=== PATIENT | female | born 1970 | race Caucasian/White ===

== ENCOUNTER 2017-05-10 05:00 | Observation (INO) | payer OTHER ==
[~2017-05-10] VITALS: Ht 160 cm; Wt 105.8 kg
[2017-05-10 05:06] VITALS: Ht 160 cm; Wt 105.8 kg
[2017-05-10 06:13] LABS: BASOPHIL % 0.4 % (0-2); PLATELET COUNT 302 x10^3mcL (130-400); RED CELL DISTRIBUTION WIDTH 13.5 % (11.5-14.5)
[2017-05-10 06:29] LABS: ALKALINE PHOSPHATASE 77 U/L (46-116); ALT/SGPT 34 U/L (14-59); AST/SGOT 39 U/L (15-37); BILIRUBIN TOTAL 0.3 mg/dL (0.20-1.00); CALCIUM 8.9 mg/dL (8.5-10.1); CHLORIDE SERUM 105 mmol/L (98-107); CREATININE SERUM 0.9 mg/dL (0.6-1.0); GFR1 > 60 mL/min; GLUCOSE SERUM 152 mg/dL (74-106); POTASSIUM SERUM 3.8 mmol/L (3.5-5.1); SODIUM SERUM 141 mmol/L (136-145)
[2017-05-10 07:01] LABS: ALBUMIN 3.5 g/dL (3.4-5.0); CARBON DIOXIDE 27.4 mmol/L (21-32)
[2017-05-10] MEDS ORDERED: ASPIR 8181 MG PO (07:22)
[2017-05-10] MEDS ORDERED: GOOD SENSE OMEP20 MG PO (07:44)
[2017-05-10 09:58] VITALS: BP 103/63
[2017-05-10 10:23] VITALS: BP 103/63
[2017-05-10 14:15] VITALS: BP 98/49
[2017-05-10 17:16] VITALS: BP 125/74
[2017-05-10] MEDS ORDERED: PEPCID20 MG PO ×2 (19:26→19:27)
[2017-05-10 19:29] VITALS: BP 125/74
== END 2017-05-10 20:52 | disposition home or self-care (01) | DRG 198 ==
LOC: ED 05:00 → DU 07:29
PROVIDERS: Emergency Medicine
DX: R07.89 Other chest pain (principal); I25.2 Old myocardial infarction; I69.354 Hemiplegia and hemiparesis following cerebral infarction affecting left non-dominant side; I10 Essential (primary) hypertension; K21.9 Gastro-esophageal reflux disease without esophagitis; F41.8 Other specified anxiety disorders; I25.10 Atherosclerotic heart disease of native coronary artery without angina pectoris; Z79.82 Long term (current) use of aspirin
CPT/HCPCS: 83880; 85378; 90658; A9500; G0378; J2405; J2785; J3490; Q0092

== ENCOUNTER 2018-06-18 15:53 | Emergency (ER) | payer OTHER ==
[~2018-06-18 15:53] MED LIST: ASPIR 8181 MG PO; GOOD SENSE OMEP20 MG PO; PEPCID20 MG PO
[2018-06-18 16:43] VITALS: BP 125/76
== END 2018-06-18 18:16 | disposition left against medical advice (07) ==
LOC: ED 15:53
DX: Z53.21 Procedure and treatment not carried out due to patient leaving prior to being seen by health care provider (principal)

== ENCOUNTER 2018-09-27 17:06 | Emergency (ER) | payer OTHER ==
[~2018-09-27] VITALS: Ht 170.2 cm; Wt 105.2 kg
[2018-09-27 17:19] VITALS: Ht 170.2 cm; Wt 105.2 kg
[2018-09-27 18:36] LABS: CHLORIDE SERUM 106 mmol/L (98-107); CREATININE SERUM 0.7 mg/dL (0.6-1.0); GFR1 > 60 mL/min; GLUCOSE SERUM 102 mg/dL (74-106); POTASSIUM SERUM 3.6 mmol/L (3.5-5.1); SODIUM SERUM 142 mmol/L (136-145)
[2018-09-27 18:42] LABS: BASOPHIL % 0.5 % (0-2); PLATELET COUNT 257 x10^3mcL (130-400); RED CELL DISTRIBUTION WIDTH 13.4 % (11.5-14.5)
[2018-09-27 18:46] LABS: ALBUMIN 3.2 g/dL (3.4-5.0); ALKALINE PHOSPHATASE 70 U/L (46-116); ALT/SGPT 53 U/L (14-59); AST/SGOT 39 U/L (15-37); BILIRUBIN TOTAL 0.3 mg/dL (0.20-1.00); LIPASE 210 IU/L (73-393); TOTAL PROTEIN, SERUM 7.1 g/dL (6.4-8.2)
[2018-09-27 18:48] LABS: UA SPECIFIC GRAVITY >=1.030 (1.005-1.035); microscopic required? YES; urine erythrocyte 1+ (NEGATIVE)
[2018-09-27 19:39] VITALS: BP 114/75
== END 2018-09-27 19:39 | disposition home or self-care (01) ==
LOC: ED 17:06
PROVIDERS: Emergency Medicine
DX: R10.84 Generalized abdominal pain (principal); R19.7 Diarrhea, unspecified; R11.10 Vomiting, unspecified; D64.9 Anemia, unspecified; Z86.73 Personal history of transient ischemic attack (TIA), and cerebral infarction without residual deficits
CPT/HCPCS: J1885; J2405; J7030

== ENCOUNTER 2018-09-28 19:40 | Emergency (ER) | payer OTHER ==
[~2018-09-28] VITALS: Ht 170.2 cm; Wt 105.7 kg
[2018-09-28 20:12] VITALS: Ht 170.2 cm; Wt 105.7 kg
[2018-09-28 21:12] LABS: BASOPHIL % 0.3 % (0-2); PLATELET COUNT 272 x10^3mcL (130-400); RED CELL DISTRIBUTION WIDTH 13.4 % (11.5-14.5)
[2018-09-28 21:22] LABS: CALCIUM 8.7 mg/dL (8.5-10.1); CARBON DIOXIDE 30.2 mmol/L (21-32); CHLORIDE SERUM 106 mmol/L (98-107); CREATININE SERUM 0.8 mg/dL (0.6-1.0); GFR1 > 60 mL/min; GLUCOSE SERUM 100 mg/dL (74-106); POTASSIUM SERUM 3.6 mmol/L (3.5-5.1); SODIUM SERUM 141 mmol/L (136-145)
[2018-09-28 21:26] LABS: ALKALINE PHOSPHATASE 67 U/L (46-116); ALT/SGPT 45 U/L (14-59); AST/SGOT 39 U/L (15-37); BILIRUBIN TOTAL 0.3 mg/dL (0.20-1.00); LIPASE 195 IU/L (73-393); TOTAL PROTEIN, SERUM 6.9 g/dL (6.4-8.2)
[2018-09-28 21:28] LABS: ALBUMIN 3.3 g/dL (3.4-5.0)
[2018-09-28 22:28] LABS: UA SPECIFIC GRAVITY <=1.005 (1.005-1.035); microscopic required? YES; urine erythrocyte TRACE (NEGATIVE)
[2018-09-29 00:17] VITALS: BP 116/94
== END 2018-09-29 00:17 | disposition home or self-care (01) ==
LOC: ED 19:40
PROVIDERS: Emergency Medicine
DX: R10.13 Epigastric pain (principal); R19.7 Diarrhea, unspecified; Z86.2 Personal history of diseases of the blood and blood-forming organs and certain disorders involving the immune mechanism; Z86.73 Personal history of transient ischemic attack (TIA), and cerebral infarction without residual deficits
CPT/HCPCS: 85378; J2405

== ENCOUNTER 2019-01-20 05:33 | Inpatient (IN) | payer MEDICAID ==
[~2019-01-20] VITALS: Ht 167.6 cm; Wt 95.0 kg
--- NOTE | 2019-01-20 05:51 | NUR ---
PT CAME IN DUE TO C/O OF CHEST PAIN AND RADIATING TO RT ARM FOR 2 DAYS, PT IS ALERT AND ORIENTED X 4, BREATHING EVEN AND UNLABORED ON ROOM AIR WITH SPO2:96%, NO RESP DISTRESS OR SOB NOTED, PLACED PT ON GLOBAL COORDINATOR WITH NSR, EKG DONE AT BEDSIDE, DR LENZ AT BEDSIDE AND EVMYRTLE PT.
--- NOTE | 2019-01-20 06:06 | NUR ---
DR LUNA AT BEDSIDE AND MARIA ELENA PT.
[2019-01-20 06:26] LABS: CALCIUM 9.5 mg/dL (8.5-10.1); CARBON DIOXIDE 23.6 mmol/L (21-32); CHLORIDE SERUM 105 mmol/L (98-107); CREATININE SERUM 0.9 mg/dL (0.6-1.0); GFR1 > 60 mL/min; GLUCOSE SERUM 111 mg/dL (74-106); POTASSIUM SERUM 3.7 mmol/L (3.5-5.1); SODIUM SERUM 140 mmol/L (136-145)
[2019-01-20 06:30] LABS: ALBUMIN 3.8 g/dL (3.4-5.0); ALKALINE PHOSPHATASE 82 U/L (46-116); ALT/SGPT 38 U/L (14-59); AST/SGOT 38 U/L (15-37); BILIRUBIN TOTAL 0.8 mg/dL (0.20-1.00); LIPASE 141 IU/L (73-393); TOTAL PROTEIN, SERUM 7.8 g/dL (6.4-8.2)
[2019-01-20 06:48] LABS: BASOPHIL % 0.3 % (0-2); PLATELET COUNT 287 x10^3mcL (130-400)
--- NOTE | 2019-01-20 06:52 | NUR ---
PT RESTING IN BED WITH EYES CLOSED AND APPEARS COMFORTABLE, NO DISTRESS NOTED.
--- NOTE | 2019-01-20 07:00 | NUR ---
REPORT GIVEN TO ESTEPHANIE, ALL QUESTIONS ANSWERED AND CONCERNS ADDRESSED.
--- NOTE | 2019-01-20 07:02 | NUR ---
RECEIVED REPORT FROM EMILI RODRIGUEZ AND ASSUMED CARE OF PATIENT.
--- NOTE | 2019-01-20 07:28 | NUR ---
PT. SLEEPING, EASILY ARROUSABLE. LAYING ON GURNEY IN POSITION OF COMFORT. BREATHING E/U. NAD. CALL LIGHT IN REACH. WILL CONTINUE TO MONITOR.
[2019-01-20] MEDS ORDERED: BENTYL20 MG/2 ML (07:31)
[2019-01-20] MEDS ORDERED: REG5 (07:31)
[2019-01-20] MEDS ORDERED: ZOF4 (07:31)
[2019-01-20] MEDS ORDERED: TRAMADOL HCL50 MG (07:32)
--- NOTE | 2019-01-20 07:40 | NUR ---
DR. VASQUES AT BEDSIDE TO DISCUSS RESULTS AND PLAN OF CARE WITH PATIENT.
--- NOTE | 2019-01-20 08:20 | NUR ---
NITRO ORDERED AT 6AM AND WAS NOT GIVEN, NOTIFIED DR. VASQUES AND ADVISED TO HOLD NITRO AT THIS TIME.
--- NOTE | 2019-01-20 08:21 | NUR ---
REPORT CALLED TO LEANNE RODRIGUEZ IN TELE DEPARTMENT FOR FURTHER CARE OF PATIENT. ALL QUESTIONS AND CONCERNS ADDRESSED.
--- NOTE | 2019-01-20 08:30 | NUR ---
RECEIVED PATIENT ALERT AND ORIENTED TIMES FOUR. PATIENT HAS CHEST PAIN TO THE RIGHT SIDE OF THE CHEST AND HAS IT RADIATIUNG TO [facility] RIGHT ARM FROM THE SHOULDER TO THE WRIST. PATIENT HAS VITALS AT [facility] AT 97.1, 94%, 110/82, 75, 20. PATIENT HAS BEEN WITH PAIN TO HTE CHEST AND SOME DIZZINESS AND NAUSEA AND NUMBNESS TO THE RIGHT LEG THAT ADITYA HER INTO THE ER. SHE HAS HAD A COLONOSCOPY ABOUT A WEEK AGO AND POLYPS REMOVED AT THAT TIME. 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 PATIENT HAS BEEN AMBULATORY AND DENIES ANY NEED FOR A CANE OR WALKER. THE PATIENT WAS ASSISTED TO THE RESTROOM AND NOTED SHE HAS A LIMP. SHE STATES SOME WEAKNESS TO THE LEFT LEG POST THE STROKE. PATIENT HAS NOTED EKG CHANGES ON [facility] MONITOR AND WAS ADMITTED DUE TO THIS. PATIENY HAS NEGATIVE TROPONIN AND THE CHEST XRAY ALSO NEGATIVE.
--- NOTE | 2019-01-20 08:42 | NUR ---
PT. TRANSPORTED TO [facility] FLOOR RM 221B. TRANSPORTED VIA RNEY, PT. AAOX4, TALKING AND RESPONDING APPROPRIATELY, BREATHING E/U. NAD. STABLE AT TIME OF TRANSFER.
[2019-01-20 09:32] VITALS: BP 110/82
--- NOTE | 2019-01-20 11:00 | NUR ---
CHECKED THE PATIENT AN D SHE IS SLEEPING QUIETLY AT THIS TIME. NO INDICATION OF DISTRESS NOTED.
[2019-01-20 12:17] VITALS: BP 97/60
[2019-01-20 12:21] LABS: T3 TOTAL 1.25 ng/mL
[2019-01-20 12:49] LABS: CHOLESTEROL/HDL RATIO 3.5; PHOSPHOROUS 4.5 mg/dL (2.5-4.9)
[2019-01-20 12:58] LABS: FREE T4 1.28 ng/dL (0.76-1.46); FREE THYROXINE INDEX 3.4 ug/dL (1.4-4.5); T4(THYROXINE) 9.9 ug/dL (4.7-13.3)
--- NOTE | 2019-01-20 14:00 | NUR ---
Discount pharmacy card and list to low cost medical clinics given to patient by Easton Bird.
--- NOTE | 2019-01-20 14:21 | NUR ---
RESTING QUIETLY AND DENIES ANY ACUTE PAIN OR DISTRESS. WILL CONTINUE TO MONITOR.
--- NOTE | 2019-01-20 17:03 | NUR ---
COMPLAINS OF HEADACHE AND PATIENT GIVEN TYLENOL AND WILL CONTINUE TO MONTIOR INDICATED.
[2019-01-20 17:40] VITALS: BP 104/69
[2019-01-20 21:07] VITALS: BP 102/65
--- NOTE | 2019-01-20 21:43 | NUR ---
SHIFT REASSESSMENT DONE.PATIENT ALERT AND ORIENTED.FAMILY AT BEDSIDE,SUPPORTIVE OF CARE.[place] INTACT.CALL LIGHT IN REACH.NO COMPLAIN OF CHEST PAIN.
--- NOTE | 2019-01-20 22:07 | NUR ---
ALL PM MEDS GIVEN,SWALLOWS WELL,MORE FAMILY MEMBER AT BEDSIDE EARLIER.SUPPORTIVE OF CARE.
--- NOTE | 2019-01-20 22:58 | NUR ---
PATIENT HAS LEFT SIDED WEAKNESS,PREVIOUS STROKE 2017.
[2019-01-20 23:42] LABS: microscopic required? YES; urine erythrocyte TRACE (NEGATIVE)
[2019-01-20 23:49] LABS: AMPHETAMINE QUAL UR NONE DETECTED (See below)
--- NOTE | 2019-01-20 23:54 | NUR ---
UA UDS NEGATIVE.
--- NOTE | 2019-01-21 02:20 | NUR ---
CHECKED AT INTERVALS FOR NEEDS AND SAFETY.CALL LIGHT IN REACH.
[2019-01-21 06:41] LABS: CALCIUM 9.2 mg/dL (8.5-10.1); CARBON DIOXIDE 27.7 mmol/L (21-32); CHLORIDE SERUM 105 mmol/L (98-107); CREATININE SERUM 0.7 mg/dL (0.6-1.0); GFR1 > 60 mL/min; GLUCOSE SERUM 101 mg/dL (74-106); POTASSIUM SERUM 4.1 mmol/L (3.5-5.1); SODIUM SERUM 141 mmol/L (136-145)
[2019-01-21 06:47] VITALS: BP 117/62
[2019-01-21 07:03] LABS: BASOPHIL % 0.2 % (0-2); PLATELET COUNT 260 x10^3mcL (130-400); RED CELL DISTRIBUTION WIDTH 12.9 % (11.5-14.5)
[2019-01-21 07:56] VITALS: BP 105/55
--- NOTE | 2019-01-21 08:32 | NUR ---
PATIENT HAD EMESIS AND SHE BELIEVES IT IS FROM THE [place]. GAVE ZOFRAN AND NOTED ABOUT 100 CC OF JELLO SHE HAD JUST CONSUMED WITH SOME FOOD NOTED. PATIENT SEEN BY DR OGLESBY AND SHE HAD DISCUSS PLAN OF CARE. PER THE YEAST FERMENTATION ATTENDANT SHE WILL PROBALLY BE DICHARGED TO HOME TOMORROW. THE YEAST FERMENTATION ATTENDANT FEELS THE PATIENT MAY BE SUFFERING FROM ANXIETY SHE HAD DISCUSSED WITH THE PATIENT.
--- NOTE | 2019-01-21 12:27 | NUR ---
COMPLAINS OF BLEEDING TO THE IV SITE. NOTED A SMALL AMOUNT OF BLOOD AROUNG THE CATHETER. THE PATIENT OFFERED A RESTART BUT SHE REFUSED AT THIS TIME.
[2019-01-21 12:34] VITALS: BP 105/63
[2019-01-21 16:32] VITALS: BP 110/69
--- NOTE | 2019-01-21 19:20 | NUR ---
RECEIVED PT IN BED RESTING QUIETLY. SHE IS ALERT,ORIENTED X4. NO SOB ON ROOM AIR. PT STATED SHE HAS WEAKNESS TO HER LT SIDE DUE TO HX OF STROKE BUT PT ABLE TO MOVE ALL EXTREMITIES WELL. PT DENIED CHEST PAIN AND PALPITATIONS. SHE DENIED FEELING NUMBNESS ON HER EXTREMITIES. W/ HL TO RTFA INTACT. CALL LIGHT W/IN REACH.
[2019-01-21 21:27] VITALS: BP 112/69
--- NOTE | 2019-01-22 03:18 | NUR ---
PT AWAKE AT THIS TIME AND USING HER PHONE. SHE DENIES PAIN OR DISCOMFORT.
--- NOTE | 2019-01-22 05:15 | NUR ---
PT SLEPT FAIRLY. SHE REMAINS ALERT AND ORIENTED X4. SHE HAD NO EPISODE OF CHEST PAIN AND PALPITATIONS. SHE WAS MEDICATED FOR HEADACHE X1. HL TO RTFA INTACT. ALL NEEDS ATTENDED TO.
[2019-01-22 05:34] VITALS: BP 108/60
[2019-01-22 06:57] LABS: BASOPHIL % 0.5 % (0-2); PLATELET COUNT 271 x10^3mcL (130-400); RED CELL DISTRIBUTION WIDTH 13.4 % (11.5-14.5)
[2019-01-22 07:00] LABS: CALCIUM 8.9 mg/dL (8.5-10.1); CARBON DIOXIDE 27.5 mmol/L (21-32); CHLORIDE SERUM 107 mmol/L (98-107); CREATININE SERUM 0.8 mg/dL (0.6-1.0); GFR1 > 60 mL/min; GLUCOSE SERUM 108 mg/dL (74-106); POTASSIUM SERUM 4.4 mmol/L (3.5-5.1); SODIUM SERUM 142 mmol/L (136-145)
--- NOTE | 2019-01-22 07:20 | NUR ---
RECEIVED PT. IN BED A/A/O X3. NO SOB, NO N/V NOTED. PT. DENIES ANY PAIN AT THIS TIME. IV SITE NOTED TO R FA. SCD TO BLE MAINTAINED. BED IN LOW POS., CALL LIGHT WITHIN REACH. SIDE RAILS UP X3.
--- NOTE | 2019-01-22 07:25 | NUR ---
NURSE PRACTITIONER CHELO HOROWITZ AT BEDSIDE TALKING TO PT. AT THIS TIME.
[2019-01-22 09:14] VITALS: BP 103/60
[2019-01-22 12:02] VITALS: BP 107/60
--- NOTE | 2019-01-22 15:20 | NUR ---
D/C HOME INSTRUCTIONS GIVEN TO PT. WHO VERBALIZED UNDERSTANDING OF INSTRUCTIONS. IV H/L TO R FA REMOVED. TELE. MONITOR #8 REMOVED AND RETURNED TO TELE. MONITOR STATION.
--- NOTE | 2019-01-22 15:30 | NUR ---
PT. IS BEING DISCHARGED IN STABLE CONDITION VIA WHEELCHAIR. ALL BELONGINGS SENT HOME WITH PT. UPON DISCHARGE.
== END 2019-01-22 15:30 | disposition home or self-care (01) | DRG 243 ==
LOC: ED 05:33 → DU 07:27
PROVIDERS: Emergency Medicine; ADMIT Family Medicine
DX: K21.9 Gastro-esophageal reflux disease without esophagitis (principal); I69.354 Hemiplegia and hemiparesis following cerebral infarction affecting left non-dominant side; K76.89 Other specified diseases of liver; M94.0 Chondrocostal junction syndrome [Tietze]; I25.10 Atherosclerotic heart disease of native coronary artery without angina pectoris; Z79.82 Long term (current) use of aspirin
CPT/HCPCS: 84439; G0378; J2405; Q0092

== ENCOUNTER 2019-06-30 14:15 | Emergency (ER) | payer OTHER ==
[~2019-06-30] VITALS: Ht 170.2 cm; Wt 83.9 kg
[~2019-06-30 14:15] MED LIST changes: +BENTYL20 MG/2 ML; +REG5; +TRAMADOL HCL50 MG; +ZOF4
[2019-06-30 14:33] VITALS: Ht 170.2 cm; Wt 83.9 kg
[2019-06-30 16:13] VITALS: BP 115/62
== END 2019-06-30 16:19 | disposition home or self-care (01) ==
LOC: ED 14:15
DX: S20.211A Contusion of right front wall of thorax, initial encounter (principal); M25.511 Pain in right shoulder; R42 Dizziness and giddiness; M54.6 Pain in thoracic spine; M54.2 Cervicalgia; Z90.49 Acquired absence of other specified parts of digestive tract; Z90.89 Acquired absence of other organs; Z86.2 Personal history of diseases of the blood and blood-forming organs and certain disorders involving the immune mechanism; V49.49XA Driver injured in collision with other motor vehicles in traffic accident, initial encounter; Y93.I9 Activity, other involving external motion; Y92.488 Other paved roadways as the place of occurrence of the external cause; Y99.8 Other external cause status
CPT/HCPCS: J1885; Q0092

== ENCOUNTER 2020-04-19 16:17 | Emergency (ER) | payer SELFPAY ==
[~2020-04-19] VITALS: Ht 167.6 cm; Wt 95.3 kg
[2020-04-19 16:46] VITALS: BP 115/75; Ht 167.6 cm; Wt 95.3 kg
== END 2020-04-19 21:23 | disposition left against medical advice (07) ==
LOC: ED 16:17
DX: Z53.21 Procedure and treatment not carried out due to patient leaving prior to being seen by health care provider (principal)